=== PATIENT | male | born 1945 | race Caucasian/White ===

== ENCOUNTER 2016-12-06 06:34 | Day surgery (SDC) | payer MEDICARE ==
--- NOTE | 2016-11-30 12:34 | HISTORY & PHYSICAL ---
HISTORY: 71 year old male with Type II Diabetes mellitus (on Insulin) since about 2004. The patient is here today for a scheduled comprehensive eye exam. The patient notes more trouble with "depth perception" when driving and is having more trouble seeing in the dark (difficulty seeing wildlife on the road). He denies seeing any "starbursts or haloes" around lights at night , but states he has difficulty judging cars in front of him and has some glare with oncoming headlights. He is having significant trouble with seeing the scrolling indira on the television. He denies any issues with near vision or reading, but has to use a magnifying glass to see the writing on Rx bottles. The current reading glasses are about 3 years old and measure as: +2.25 + 1.25 x 020 OD, and +2.25 +2.50 x 010 OS. PAST OCULAR HISTORY: Visually significant cataracts OU, Large horse-shoe tear OS - post argon laser photo-coagulation prophylaxis of the retinal break OS 01/07 (Prochoda), Left upper lid surgery for "skin cancer" in 2002 (done in [place], [place]), Dysfunctional tear syndrome, Mixed astigmatism and presbyopia OCULAR MEDICATIONS: Systane artificial tears OU prn only (about 1 x per week) PAST MEDICAL HISTORY: Abdominal pain, acute, right upper quadrant (R10.11) Seen in [facility] Dr. Fernandez referring, sonosite done and needs formal ultrasound Anxiety (F41.9) BPH (benign prostatic hypertrophy) (N40.0) Cardiomyopathy Viral cardiomyopathy with some CHF. 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 Depression Diabetes mellitus, type II (E11.9) DJD (degenerative joint disease) (M19.90) GERD (gastroesophageal reflux disease) (K21.9) Hypercholesterolemia Mitral Valve Prolapse Retinal tear, left (H33.002) Large horse-shoe tear OS - post argon laser photo- coagulation prophylaxis of the retinal break OS 07/01/10 (Prochoda). ALLERGIES: No Known Drug Lwpgnctlo50/27/2014 FAMILY HISTORY: No Significant Family Ocular History SOCIAL HISTORY: Alcohol Use Occasional alcohol use. Tobacco Use Never smoker. Vehicle Driving Yes. CURRENT MEDICATIONS: Aleve (220MG Tablet, two tablets Oral every morning) Active. ALPRAZolam ER (1MG Tablet ER 24HR, 1 tablet Oral at bedtime) Active. Atenolol (50MG Tablet, one tablet Oral every morning) Active. Atorvastatin Calcium (40MG Tablet, one tablet Oral every morning) Active. Centrum Silver (one tablet Oral every morning) Active. Clopidogrel Bisulfate (75MG Tablet, one tablet Oral every morning) Active. Lantus SoloStar (100UNIT/ML Solution, 7 units Subcutaneous two times daily) Active. NovoLOG PenFill (100UNIT/ML Solution, Sliding Scale Subcutaneous at mealtime) Active. PriLOSEC OTC (20MG Tablet DR, one tablet Oral every morning) Active. Terazosin HCl (1MG Capsule, one capsule Oral at bedtime) Active. Vitamin C ER (500MG Tablet ER, one tablet Oral every morning) Active. Medications Reconciled PAST SURGICAL HISTORY: Appendectomy About 1999. Argon laser photo-coagulation prophylaxis of a retinal break OS done 07/01/10 ( [facility]). Elbow Right elbow fracture (after trauma) - repaired in 1970. Right Knee arthroscopy Late . REVIEW OF SYSTEMS: General Not Present- Fever. Skin Present- Skin Cancer (Shoulders, face,eyelid). Not Present- New Lesions and Skin Problems. HEENT Present- Allergies and Blurred Vision. Not Present- Decreased Hearing, Eye Pain, Sinusitis and Sleep Apnea. Respiratory Not Present- Asthma, Chronic Cough, Emphysema and Shortness of Breath. Breast Not Present- Breast Cancer. Cardiovascular Present- Heart Problems. Not Present- Angina, Heart Stent, Hyperlipidemia and Hypertension. Note: 2006 Gastrointestinal Present- Heartburn (GERD). Not Present- PUD. Male Genitourinary Present- BPH. Not Present- Prostate cancer. Musculoskeletal Present- Joint Pain. Neurological Not Present- Decreased Memory, Headaches, Stroke and Vertigo. Psychiatric Not Present- Anxiety and Depression. Endocrine Present- Diabetes. Not Present- Thyroid Problems. Hematology Not Present- Bleeding Problems and Blood Clots. Note: Reviewed by Dr. Colón. PHYSICAL EXAMINATION: 11/06/2016 5:26 PM Pulse: 58 (Regular) P.OX: 95% (Room air) BP: 160/88 (Sitting, Left Arm, Standard) OCULAR EXAMINATION: VISUAL ACUITY: with correction (Glasses) OD 20/40 OS 20/30-2 NEAR J1+ at 14" pushing WORKING Rx: OD [place] + 1.00 x 012 OS -0.75 + 2.50 x 006 ADD (Distance glasses) MANIFEST REFRACTION: OD -0.25 + 1.50 x 015 (20/30-1 BAT 20/150) Slightly better vision in trial frames OS -0.50 + 2.75 x 012 (20/25-2 BAT 20/40) Slightly better vision in trial frames ADD + 2.75 (J1+ at 14") Good range of near vision in trial frames CONFRONTATIONAL VISUAL ROOT: Normal to counting fingers in four quadrants OU PUPILS: Round and equal OU with no afferent pupillary defect seen EXTERNAL: Moderate ptosis of the left upper lid EXTRA-OCULAR MUSCLES: Versions full OU - orthotropic at both distance and near SLIT LAMP EXAM: LIDS/LASHES: No evidence of recurrence of the left upper lid tumor. Normal OU CONJUNCTIVA: Quiet OU CORNEA: Clear with scant tear film OU. 2+ inferior superficial punctate staining OU AC: Deep and quiet OU IRIS: Normal with no neovascularization of the iris seen OU PUPILS: Round OU - dilated widely OU LENS: 3+ central nuclear sclerosis with 3+ diffuse vacuolar cortical cataract changes in the visual axis OD. 2+ nuclear sclerosis with 2-3+ cortical cataract changes OS ANTERIOR VITREOUS: No anterior vitreous cells or pigment seen OU TONOMETRY: TIME: 1:18 PM OD: 12 mm Hg OS: 12 mm Hg DILATING gtt: Phenylephrine 2.5% + Tropicamide 1% FUNDUS: C/D: 0.4 OD, 0.6 OS DISCS: Sharp with clear disc margins OU MACULA: Absent foveal reflex with a trace pigmentary disturbance centrally OU VESSELS: Normal with no diabetic retinopathy seen OU PERIPHERY: The large infero-temporal horse-shoe tear OS is nicely demarcated by laser scars. 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 The patient notes worsening visual symptoms and is especially bothered by difficulty seeing the television and when driving and would like to consider cataract surgery (plan for OD first) . We discussed the refractive goals today and the patient would like to be corrected to a near-plano spherical equivalent postoperatively OD. Diabetes mellitus, type II (E11.9) Type II Diabetes mellitus - no diabetic retinopathy noted. Discussed with patient today and I suggested continued annual follow-up evaluations. Retinal tear, left (H33.002) Story: Large horse-shoe tear OS - post argon laser photo-coagulation prophylaxis of the retinal break OS 07/01/10 (Prochoda). Large horse-shoe tear OS - stable post argon laser demarcation OS in 2009. No new retinal breaks seen. PLAN: Cataract extraction with intra-ocular lens OD, December 06, 2016. Lid soaks and scrubs BID OU (pre-operative blepharitis protocol and antibiotic ointment instructions handout given to patient today). Erythromycin ophthalmic ointment q hs OU as blepharitis prophylaxis (an e-Rx with refills x 1 was sent to [facility] in [place] ([phone] ) today). BIOMETRY, OPHTHALMIC, BY PARTIAL COHERENCE INTERFEROMETRY (10008) Started Erythromycin 5MG/GM, Apply 1/8 inch Ointment to the eyelashes of both eyes at bedtime, 1 Tube, 11/06/2016, Ref. x1. Started Zymaxid 0.5%, 1 drop(s) four times daily to the operated eye, after surgery, 1 Bottle, 11/06/2016, Ref. x1. Started PrednisoLONE Acetate 1%, 1 drop(s) four times daily in the operated eye , after surgery, 10 Milliliter, 11/06/2016, Ref. x1. MTDD
[~2016-12-06 06:34] MED LIST: APRACLONIDINE 0.5% OPHTH 5 ML BTL OP ONE; BUPIVACAINE HCL/PF 0.75% 10 ML VIAL OP ONE; CIPROFLOXACIN 0.3% OPHTH 50 DROP/5 ML BTL OP SCH; CYCLOPENTOLATE HCL 1% OPHTH 2 ML BTL OP SCH; FLURBIPROFEN 0.03% OPHTH 2.5 ML BTL OP SCH; PHENYLEPHRINE 2.5% OPHTH 10 DROP/2 ML BTL OP SCH
[2016-12-06 06:50] VITALS: TEMP 98.4
[2016-12-06] MEDS ORDERED: CYCLOPENTOLATE HCL 1% OPHTH 2 ML BTL ONE (06:55)
[2016-12-06] MEDS ORDERED: FLURBIPROFEN 0.03% OPHTH 2.5 ML BTL ONE (06:55)
[2016-12-06] MEDS ORDERED: PHENYLEPHRINE 2.5% OPHTH 10 DROP/2 ML BTL ONE (06:55)
[2016-12-06] MEDS ORDERED: BUPIVACAINE HCL/PF 0.75% 10 ML VIAL ONE (06:55)
[2016-12-06] MEDS ORDERED: CIPROFLOXACIN 0.3% OPHTH 50 DROP/5 ML BTL ONE (06:55)
[2016-12-06] MEDS ORDERED: APRACLONIDINE 0.5% OPHTH 5 ML BTL ONE (06:55)
[2016-12-06] MEDS ORDERED: BACITRACIN OPHTH OINTMENT 3.5 GM TUBE ONE (07:07)
[2016-12-06] MEDS ORDERED: KETOROLAC 0.45% OPHTH 1 DROP/EACH DROPERETTE ONE (07:09)
[2016-12-06] MEDS ORDERED: CHONDROITIN/HYALURONIDATE OPHT 0.5 ML KIT ONE (07:10)
[2016-12-06] MEDS ORDERED: LIDOCAINE HCL/PF 1% 30 ML VIAL ONE (07:11)
[2016-12-06] MEDS ORDERED: MIDAZOLAM HCL 2 MG/2 ML VIAL ONE (08:13)
[2016-12-06 08:53] VITALS: BP 143/78; PULSE 60; RESP 18; O2SAT 93
--- NOTE | 2016-12-07 07:44 | OPERATIVE REPORT ---
DATE OF SURGERY: 12/06/2016 SURGEON: Francis Colón MD ANESTHESIA: Topical with monitored anesthesia care. PREOPERATIVE DIAGNOSIS: Cataract, right eye. POSTOPERATIVE DIAGNOSIS: Cataract, right eye. OPERATION PERFORMED: Cataract extraction by phacoemulsification with posterior chamber intraocular lens, right eye. COMPLICATIONS: None. PROCEDURE: The patient was brought to the operating room where he was placed in the supine position. After the instillation of additional tetracaine drops in the right eye, the eye was prepped and draped in the usual sterile ophthalmic manner. A lid speculum was placed in the right eye, after which an inferior paracentesis was fashioned with 1-mm steel keratome, and 0.2 mL of 1% nonpreserved lidocaine was injected intracamerally followed by Viscoat. A temporal clear corneal incision of 3-mm width was fashioned with a steel keratome. A continuous curvilinear capsulorrhexis was fashioned with a bent- needle cystitome and Utrata forceps under Viscoat. Hydrodissection was carried out with balanced salt solution on an intraocular cannula. The nucleus did not rotate freely, so additional hydrodissection was carried out without much improvement. Phacoemulsification proceeded in a two- handed fashion utilizing moderate to high phacoemulsification times and jiménez, as the nucleus was noted to be 2-3+ dense. The nucleus had to be removed in a piecemeal fashion using a chopping technique since it could not be rotated. Residual epinuclear and cortical material was then removed with the automated irrigation-aspiration handpiece. The anterior chamber and capsular bag were then reinflated with Provisc, after which an AcrySof model SA60AT foldable acrylic intraocular lens of 18.5 diopters power was placed into the capsular bag. The haptics were rotated with a Y hook and the intraocular lens was noted to center well. Residual viscoelastic was then removed with the automated irrigation-aspiration handpiece, after which the wound edges were hydrated with balanced salt solution. The intraocular pressure at the conclusion of the procedure was physiologic, and there was no evidence of wound leakage upon testing with a Weck Valerie sponge. Acular drops and bacitracin ointment were placed in the right eye, and the patient was brought to the recovery area, having tolerated the procedure well. He was given full postoperative instructions. SCOTT
== END 2016-12-06 09:00 | disposition home or self-care (01) ==
LOC: SDS 06:34
PROVIDERS: ATTEND Ophthalmology
DX: H25.011 Cortical age-related cataract, right eye (principal); E11.9 Type 2 diabetes mellitus without complications; H33.002 Unspecified retinal detachment with retinal break, left eye; I50.9 Heart failure, unspecified; N40.0 Benign prostatic hyperplasia without lower urinary tract symptoms; F41.9 Anxiety disorder, unspecified; M19.90 Unspecified osteoarthritis, unspecified site; K21.9 Gastro-esophageal reflux disease without esophagitis; E78.00 Pure hypercholesterolemia, unspecified; I34.1 Nonrheumatic mitral (valve) prolapse; Z79.899 Other long term (current) drug therapy
CPT/HCPCS: J0171; J2250; V2632